=== PATIENT | female | born 2005 | race Caucasian/White ===

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

== ENCOUNTER 2025-01-01 08:10 | Emergency (ER) | payer MEDICAID ==
[~2025-01-01] VITALS: Ht 170.2 cm; Wt 85.7 kg
[~2025-01-01 08:10] MED LIST changes: -CEPH-585 PO; +PROM25SU9 RC
--- NOTE | 2025-01-01 09:19 | Physician Documentation ---
History of Present Illness ~ Chief Complaint: Headache Stated Complaint: MIGRAINE Time Seen by MD: 08:35 OK to notify your PCP?: Yes Primary Medical Doctor: [facility] Mode of Arrival: POV HPI 19-year-old female patient about 19 weeks came to the emergency room because she wakes up with a headache this morning. The pain is in the bitemporal area and the patient said the pain is throbbing in nature and there is nausea vomiting and there is photophobia. No neck pain no neck rigidity. The headache is not associated with exertion. Medication Reconciliation Allergies: Coded Allergies: No Known Allergies (Unverified , 08/05/23) Scheduled Benzocaine/Menthol (Cepacol Sore Throat Lozenge), 1 TAB PO Q4H Naproxen (Naprosyn), 1 TAB PO Q12H Promethazine Hcl (Promethegan), 25 MG RC Q6H PRN N/V Scheduled PRN Albuterol Sulfate (Proair Respiclick), 2 PUFFS INH Q4HPRN PRN for shortness of breath Past Medical History Past Medical History: No Pertinent History Past Surgical History: no surgical history Last Menstrual Period: Sep 26, 2024 Alcohol Use: None Drug Use: none Lives In: Home Review of Systems ROS As stated above in the HPI, otherwise all systems are reviewed and negative. Physical Exam Vital Signs: Temperature: 98.9, Heart Rate: 90, Respiratory Rate: 16, Pulse Oximetry: 96, Weight: 85.700 Oxygen Flow Rate: 0 Physical Exam Reviewed vital signs and they are well within normal range. Const: Does not appear to be in acute cardiopulmonary distress Head: Atraumatic Eyes: Normal Conjunctiva ENT: Normal External Ears, Nose and Mouth. Moist mucous membranes Neck: Full range of motion. No meningismus Resp: Clear to auscultation bilaterally. Normal work of breathing Cardio: Regular rate and rhythm, no murmurs. Skin well perfused Abd: Soft, non-tender, non-distended. Normal bowel sounds. No rebound or guarding Skin: No petechiae or rashes. Warm and dry Back: No midline or flank tenderness Ext: No cyanosis, or edema Neuro: Awake and alert Psych: Normal Mood and Affect Progress Results/Orders Results/Orders Orders - OHNBIB MD Saline Lock (01/01/25 08:55) Completed Orders - OHN,BIB Tovar MD Normal Saline 1000ml (Sodium Chloride 10 (01/01/25 08:55) Metoclopramide Inj (Reglan Inj) (01/01/25 08:55) Diphenhydramine Inj (Benadryl Inj.) (01/01/25 08:55) Ketorolac Trometh 30mg/Ml Vial (Toradol (01/01/25 08:55) Cbc/Diff (01/01/25 10:12) BMP (01/01/25 10:12) Morphine 2mg/Ml Inj. (Morphine Inj.) (01/01/25 10:30) Caffeine Citrate Injection (Caffeine Cit (01/01/25 10:40) Medications Received in ER Medications (Trade) Dose Ordered Sig/Chase Route PRN Reason Start Time Stop Time Status Last Admin Dose Admin (sodium chloride 1000ml IV soln) 1,000 ml ONCE ONCE IVB 01/01/25 08:55 01/01/25 08:58 DC 01/01/25 09:27 1,000 ML (Reglan inj) 10 mg ONCE ONCE IV 01/01/25 08:55 01/01/25 09:02 DC 01/01/25 09:27 10 MG (Benadryl inj.) 50 mg ONCE ONCE IV 01/01/25 08:55 01/01/25 08:58 DC 01/01/25 09:27 50 MG (Toradol inj. 30mg/ml) 30 mg ONCE ONCE IV 01/01/25 08:55 01/01/25 09:01 DC 01/01/25 09:27 30 MG Caffeine Citrated 80 mg/Dextrose 54 ml @ 216 mls/hr ONCE ONCE IV 01/01/25 10:40 01/01/25 10:54 DC 01/01/25 11:03 216 MLS/HR Vital Signs 01/01/25 01/01/25 01/01/25 01/01/25 08:15 08:26 09:27 09:54 Temp 98.9 Pulse 90 76 Resp 16 16 18 12 B/P (MAP) 104/76 (85) Pulse Ox 96 99 O2 Flow Rate 0 0 Laboratory Tests Test 01/01/25 11:02 White Blood Count 11.8 H Red Blood Count 4.15 L Hemoglobin 12.9 Hematocrit 37.3 Mean Corpuscular Volume 89.9 Mean Corpuscular Hemoglobin 31.1 H Mean Corpuscular Hemoglobin Concent 34.5 Red Cell Distribution Width 14.0 Platelet Count 193 Mean Platelet Volume 9.0 Neutrophils (%) (Auto) 88.9 H Lymphocytes (%) (Auto) 7.9 L Monocytes (%) (Auto) 2.8 Eosinophils (%) (Auto) 0.2 Basophils (%) (Auto) 0.2 Neutrophils # (Auto) 10.5 H Lymphocytes # (Auto) 0.9 L Monocytes # (Auto) 0.3 Eosinophils # (Auto) 0.0 Basophils # (Auto) 0.0 CBC Comment Sodium Level 137 Potassium Level 3.8 Chloride Level 105 Carbon Dioxide Level 24.4 Anion Gap 8 Blood Urea Nitrogen 6 L Creatinine 0.50 Estimated GFR/1.73 m2 > 90 BUN/Creatinine Ratio 12.0 Glucose Level 83 Calcium Level 8.4 L Albumin 3.3 L Chemistry Comments Departure Disposition: HOME / SELF CARE / HOMELESS Impression: Primary Impression: Headache Condition: Stable Discharge Instructions: Headache Additional Instructions: Thank you so much for visiting [facility] Emergency room. Please ask your nurse or provider if you have questions about your care today and do not leave until all your questions have been answered. Please use any medications given as directed and follow-up with your doctor in the next 1-3 days. You may also use motrin and tylenol as needed for pain unless instructed otherwise by your provider or nurse. Indications for more urgent follow-up have been discussed, but you may return to the Emergency Department at ANY time for any worrisome or worsening symptoms. Please consume moderate amount of caffeine as usual. Referrals: NO PRIMARY CARE PROVIDER (PCP) Education Educated: Patient, Family Educated regarding: diagnosis, treatment, prognosis Signature Scribe Signature: x Attestation: BIB Ku MD January 01, 2025 09:19
[2025-01-01] MEDS: ketorolac trometh 30MG/ML vial 30 MG/ML VIAL IV ONE (09:27)
[2025-01-01] MEDS: metoclopramide 5 mg/ml inj IV ONE (09:27)
[2025-01-01] MEDS: normal saline 1000ML IV soln IVB ONE (09:27)
[2025-01-01] MEDS: diphenhydrAMINE 50 mg/ml inj IV ONE (09:27)
[2025-01-01] MEDS: caffeine citrate injection 80 MG in dextrose 5%-water 50ml 50 ML IV ONE (11:03)
[2025-01-01] MEDS: morphine 2 MG/ML inj. syringe IV ONE (11:17)
[2025-01-01 11:41] LABS: BASOPHILS % (AUTO) 0.2 % (0-1); EOSINOPHILS % (AUTO) 0.2 % (0-6); HEMATOCRIT 37.3 % (35.0-45.0); HEMOGLOBIN 12.9 g/dl (12.0-16.0); LYMPHOCYTES # (AUTO) 0.9 X10'3 (1.1-4.8); LYMPHOCYTES % (AUTO) 7.9 % (21-51); MEAN CORPUSCULAR HEMOGLOBIN 31.1 PG (27.0-31.0); MEAN CORPUSCULAR HGB CONC 34.5 g/dL (33.0-36.5); MEAN CORPUSCULAR VOLUME 89.9 FL (78-98); MONOCYTES # (AUTO) 0.3 X10'3 (0-0.9); MONOCYTES % (AUTO) 2.8 % (2-12); NEUTROPHILS # (AUTO) 10.5 X10'3 (1.8-7.7); NEUTROPHILS % (AUTO) 88.9 % (42-75); PLATELET COUNT 193 X10'3 (140-440); RED BLOOD COUNT 4.15 X10'6 (4.20-5.60); WHITE BLOOD COUNT 11.8 X10'3 (4.5-11.0)
[2025-01-01 11:46] LABS: ALBUMIN 3.3 G/DL (3.4-5.0); ANION GAP 8 (8-16); BLOOD UREA NITROGEN 6 MG/DL (7-18); CALCIUM 8.4 MG/DL (8.5-10.1); CHLORIDE 105 MMOL/L (99-107); GLUCOSE 83 MG/DL (70-104); POTASSIUM 3.8 MMOL/L (3.5-5.1); SODIUM 137 MMOL/L (135-145); TOTAL CARBON DIOXIDE 24.4 MMOL/L (24-32); eCRCL 175 ML/MIN; eGFR > 90 ML/MIN
[2025-01-01 12:54] VITALS: BP 104/65; PULSE 94; RESP 12; TEMP 98; O2SAT 99
== END 2025-01-01 12:00 | disposition home or self-care (01) ==
LOC: ER 08:11
DX: O99.352 Diseases of the nervous system complicating pregnancy, second trimester (principal); R51.9 Headache, unspecified; Z79.899 Other long term (current) drug therapy; Z3A.19 19 weeks gestation of pregnancy
CPT/HCPCS: 36415; 80048; 85025; 96361; 96365; 96375; 99284; J0706; J1200; J1885; J2765; J7030; J7060